=== PATIENT | male | born 1965 | race Two or more races ===

== ENCOUNTER 2019-07-12 13:48 | Inpatient (IN) | payer OTHER, MEDICAID ==
[~2019-07-12] VITALS: Ht 172.7 cm; Wt 114.0 kg
[2019-07-12] MEDS ORDERED: SODIUM CHLORIDE 0.9% 1,000 ML IV ONE (15:43)
[2019-07-12 16:21] LABS: Basophils # (auto) 0 uL; Basophils % (auto) 0.6 % (0.0-2.0); Eosinophils # (auto) 0.2 uL; Eosinophils % (auto) 3.5 % (0.0-7.0); Hematocrit 41.7 % (41.0-53.0); Hemoglobin 14.1 g/dL (13.5-17.5); Lymphocytes # (auto) 1.9 uL; Lymphocytes % (auto) 31.2 % (10.0-50.0); Mean Corpuscular Hgb Conc. 33.8 g/dL (32.0-36.0); Mean Corpuscular Volume 94.7 fL (80.0-100.0); Monocytes # (auto) 0.6 uL; Monocytes % (auto) 9.2 % (0.0-12.0); Neutrophils # (auto) 3.4 uL; Neutrophils % (auto) 55.5 % (37.0-80.0); Nucleated Red Blood Cells % 0.1 %; Platelet Count (auto) 252 10^3/uL (140-450); Red Cell Distribution Width 13.1 % (11.8-14.3); White Blood Cell 6.1 10^3/uL (4.4-10.8)
[2019-07-12 16:34] LABS: Alanine Aminotransferase 23 U/L (16-61); Anion Gap 6 (5-15); Aspartate Aminotransferase 11 U/L (15-37); BUN/Creatinine Ratio 19.3; Blood Urea Nitrogen 16 mg/dL (7-18); Calcium 7.3 mg/dL (8.5-10.1); Carbon Dioxide 21 mmol/L (21-32); Chloride 114 mmol/L (98-107); GFR African American 124 mL/min; GFR Non-African American 102 mL/min; Glucose 221 mg/dL (74-106); Potassium 4.6 mmol/L (3.5-5.1); Sodium 141 mmol/L (136-145)
[2019-07-12 16:38] LABS: Alkaline Phosphatase 67 U/L (45-117); Bilirubin, Total 0.2 mg/dL (0.2-1.0); Total Protein 6.6 g/dL (6.4-8.2)
[2019-07-12 16:48] LABS: INR < 0.93 (0.9-1.15); Partial Thromboplastin Time 24.1 sec (23.64-32.05)
[2019-07-12] MEDS ORDERED: ONDANSETRON HCL 4 MG/2 ML VIAL IV ONE (18:30)
[2019-07-12] MEDS ORDERED: MORPHINE SULFATE 4 MG/ML SYR/VIAL IV ONE (18:30)
[2019-07-12] MEDS ORDERED: DEXTROSE (50%) 50ML SYRG IV PRN (19:15)
[2019-07-12] MEDS ORDERED: ONDANSETRON HCL 4 MG/2 ML VIAL IV PRN (19:15)
[2019-07-12] MEDS ORDERED: NITROGLYCERIN 0.4 MG SL TAB SL PRN (19:15)
[2019-07-12] MEDS ORDERED: MORPHINE SULF INJ 2 MG/ML SYRINGE 1ML IV PRN (19:15)
[2019-07-12] MEDS ORDERED: ALBUTEROL SULF 2.5 MG/0.5ML(0.5%) NEB SOLN NEB PRN (19:15)
[2019-07-12] MEDS: SODIUM CHLORIDE 0.9% 1,000 ML IV SCH (19:59)
[2019-07-12] MEDS: GABAPENTIN 400 MG CAP PO SCH (22:20)
[2019-07-12] MEDS: MORPHINE SULF INJ 2 MG/ML SYRINGE 1ML IV PRN (22:34)
--- NOTE | 2019-07-12 23:24 | NUR ---
Respiratory note: PT SEEN AND ASSESSED FOR PRN MED NEB TX AT 2324. TX NOT INDICATED AT THIS TIME. PT STATED THAT HE HAS NO PROBLEM BREATHING RIGHT NOW. BREATH SOUNDS WERE DIMINISHED BILATERALLY. PT AWARE TO CALL FOR RT IF ANY DISTRESS OCCURS. HR 71 RR 18 POX 92% ON ROOM AIR.
[2019-07-12 23:50] VITALS: BP 137/89
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
[2019-07-13] VITALS (8 sets, daily range): BP systolic 128–155; BP diastolic 64–96
[2019-07-13] MEDS: ACCU-CHEK COMFORT CURVE STRIP VI SCH ×4 (00:23→17:46)
[2019-07-13] MEDS: InsuLIN REG 1unit/0.01ml Soln (100units/ml) SC SCH ×4 (00:23→17:47)
[2019-07-13] MEDS ORDERED: INFLUENZA QUAD 2019-2020 0.5ml SYRG IM ONE (01:45)
[2019-07-13] MEDS ORDERED: PNEUMOCOCCAL VACC POLYS 25 MCG/0.5 ML VIAL IM ONE (01:45)
[2019-07-13 06:16] LABS: Urine Bacteria MOD /hpf (None Seen); Urine Blood Negative /uL (Negative); Urine WBC 10 /hpf (0 - 3)
--- NOTE | 2019-07-13 08:50 | NUR ---
Opening Shift Note Assumed care of patient, aroused to voice. Patient is alert and orientated. No S/S of distress/SOB or pain. Left AC [address] patent and running well. Right lower quadrant urostomy in place. Instructed on POC and to call for assist PRN, will continue to monitor for changes Q1hr and PRN.
[2019-07-13] MEDS: cefTRIAXone 1GM/50ML D5W 50 ML IV SCH (09:12)
[2019-07-13] MEDS: SODIUM CHLORIDE 0.9% 1,000 ML IV SCH (09:48)
--- NOTE | 2019-07-13 09:52 | NUR ---
Respiratory note: PT ASSESSED FOR PRN MED NEB TX. NO SOB NOTED ON RA. POX 97%, HR 75, RR 18. B/S ARE CLEAR THROUGHOUT AND DIMINISHED IN THE BASES. MED NEB TX IS NOT INDICATED AT THIS TIME.
[2019-07-13] MEDS: HCTZ 25 MG TAB PO SCH (09:59)
[2019-07-13] MEDS: PANTOPRAZOLE 40 MG TAB PO SCH (10:00)
[2019-07-13] MEDS: GABAPENTIN 400 MG CAP PO SCH ×2 (10:00→21:39)
[2019-07-13] MEDS: CLOPIDOGREL BISULFATE 75 MG TAB PO SCH (10:00)
[2019-07-13] MEDS: SERTRALINE HCL 50 MG TAB PO SCH (10:02)
[2019-07-13] MEDS: LISINOPRIL 10 MG TAB PO SCH (10:02)
[2019-07-13] MEDS: MORPHINE SULF INJ 2 MG/ML SYRINGE 1ML IV PRN ×3 (10:47→21:13)
--- NOTE | 2019-07-13 19:10 | NUR ---
OPENING NOTE Assumed care of patient; family is at the bedside. Patient is alert and oriented. Currently on RA with no s/s of SOB or distress. Reports 9/10 pain in RLE. Pain management options discussed with patient. Urostomy present in right lower quadrant; stoma is pink and moist. Draining clear yellow urine to gravity. 22 gauge IV in right forearm intact and patent. NS infusing at 70ml/hr as ordered. Patient is W/C bound at baseline due to paralysis of right lower leg. Encouraged to call for assistance for all transfers. Patient verbalizes understanding. Bed is in low locked position with side rails up x2. Call light is within reach. Will continue to monitor PRN.
--- NOTE | 2019-07-13 19:30 | NUR ---
RT NOTE PT WAS SEEN BY RT FOR PRN HHN TX. PT STATES NO TREATMENT NEEDED AT THIS TIME. HR 68, RR 16, BS CLEAR, POX 96%. NO SOB OR DISTRESS NOTED. PT AWARE TO CALL IF TX NEEDED. CONT ORDERED Addendum: 07/13/19 at 1949 by Gina Shell RT Amended: Links added.
[2019-07-13] MEDS: RIVAROXABAN 15 MG TAB PO SCH (21:39)
[2019-07-13] MEDS: ZOLPIDEM TARTRATE 5 MG TAB PO PRN (21:39)
[2019-07-14] MEDS: InsuLIN REG 1unit/0.01ml Soln (100units/ml) SC SCH ×4 (00:19→18:00)
[2019-07-14] MEDS: ACCU-CHEK COMFORT CURVE STRIP VI SCH ×4 (00:20→18:00)
[2019-07-14 05:00] VITALS: BP 137/74
[2019-07-14 06:06] LABS: Basophils # (auto) 0 uL; Basophils % (auto) 0.4 % (0.0-2.0); Eosinophils # (auto) 0.3 uL; Monocytes # (auto) 0.6 uL; Neutrophils # (auto) 4.2 uL; Platelet Count (auto) 264 10^3/uL (140-450)
[2019-07-14 06:09] LABS: Eosinophils % (auto) 4.4 % (0.0-7.0); Hematocrit 39.8 % (41.0-53.0); Hemoglobin 14.5 g/dL (13.5-17.5); Lymphocytes # (auto) 1.6 uL; Lymphocytes % (auto) 23.9 % (10.0-50.0); Mean Corpuscular Hemoglobin 36.1 pg (28.0-32.0); Mean Corpuscular Hgb Conc. 36.3 g/dL (32.0-36.0); Mean Corpuscular Volume 99.5 fL (80.0-100.0); Monocytes % (auto) 8.4 % (0.0-12.0); Neutrophils % (auto) 62.9 % (37.0-80.0); Nucleated Red Blood Cells % 0.1 %; Red Blood Cells 4.01 10^6/uL (4.5-5.90); White Blood Cell 6.7 10^3/uL (4.4-10.8)
[2019-07-14] MEDS: SODIUM CHLORIDE 0.9% 1,000 ML IV SCH ×2 (06:17→14:24)
[2019-07-14 06:27] LABS: Potassium 4.2 mmol/L (3.5-5.1)
[2019-07-14 06:35] LABS: Albumin 2.8 g/dL (3.4-5.0); BUN/Creatinine Ratio 18.1; Calcium 7.7 mg/dL (8.5-10.1)
[2019-07-14 06:38] LABS: Bilirubin, Total 0.2 mg/dL (0.2-1.0); Total Protein 6.5 g/dL (6.4-8.2)
--- NOTE | 2019-07-14 07:10 | NUR ---
Respiratory note: Assessed pt for prn medneb tx. HR 60, RR 14, POX 96% on room air. Breath sounds clear/diminished throughout. No s/s of respiratory distress noted. Medneb tx not indicated at this time. Advised pt to call for RT if tx needed, pt verbalized understanding.
--- NOTE | 2019-07-14 07:20 | NUR ---
Opening Shift Note Assumed care of patient, awake and alert. No S/S of distress/SOB, no pain noted or reported at this time. Respirations are even and unlabored on RA. Updated on POC and instructed to call for assistance as needed, pt. verbalized understanding. Bed locked in lowest position, side rails up x2, call light within reach, bed alarm on for safety. Will continue to monitor for changes Q1hr and PRN.
[2019-07-14 09:00] VITALS: BP 156/88
[2019-07-14] MEDS: GABAPENTIN 400 MG CAP PO SCH ×2 (09:17→22:34)
[2019-07-14] MEDS: MORPHINE SULF INJ 2 MG/ML SYRINGE 1ML IV PRN ×3 (09:17→20:23)
[2019-07-14] MEDS: PANTOPRAZOLE 40 MG TAB PO SCH (09:18)
[2019-07-14] MEDS: HCTZ 25 MG TAB PO SCH (09:18)
[2019-07-14] MEDS: CLOPIDOGREL BISULFATE 75 MG TAB PO SCH (09:18)
[2019-07-14] MEDS: RIVAROXABAN 15 MG TAB PO SCH ×2 (09:18→22:34)
[2019-07-14] MEDS: cefTRIAXone 1GM/50ML D5W 50 ML IV SCH (09:18)
[2019-07-14] MEDS: SERTRALINE HCL 50 MG TAB PO SCH (09:18)
[2019-07-14] MEDS: LISINOPRIL 10 MG TAB PO SCH (09:19)
[2019-07-14 13:00] VITALS: BP 157/101
--- NOTE | 2019-07-14 15:00 | NUR ---
IV removal IV DC'd with clean sterile technique, catheter fully intact. Pressure dressing applied to site. Patient tolerated well.
--- NOTE | 2019-07-14 15:30 | NUR ---
IV insertion IV access obtained, via clean sterile technique by inserting 22 gauge catheter at right forearm after 2 attempt(s). IV secured properly. No trauma to site. Patient tolerated well. NOTE: []
--- NOTE | 2019-07-14 16:44 | NUR ---
PATIENT TAKEN TO RADIOLOGY FOR MRI
[2019-07-14 17:02] VITALS: BP 160/102
--- NOTE | 2019-07-14 18:06 | NUR ---
PATIENT BACK FROM RADIOLOGY.
--- NOTE | 2019-07-14 19:15 | NUR ---
OPENING NOTE Assumed care of patient who is A&O x4. Currently on room air with no s/s of SOB or distress. Reports 8/10 pain in lower back and right lower extremity. Pain management options discussed with patient who verbalizes understanding. Redness to BLE noted. Area is not raised or hot; patient denies itching or pain. Area circled and will continue to monitor for changes PRN. Urostomy in place and patent, draining to gravity. Bed is in low locked position with side rails up x2. Call light is within reach. Patient is encouraged to call for assistance when needed. Will continue to monitor for changes PRN.
[2019-07-14 20:00] VITALS: BP 166/89
[2019-07-14 22:00] VITALS: BP 166/89
[2019-07-14] MEDS: ZOLPIDEM TARTRATE 5 MG TAB PO PRN (22:34)
--- NOTE | 2019-07-14 23:15 | NUR ---
Respiratory note: ASSESSED PT FOR PRN MED NEB AT THIS TIME, PT DENIES SOB AT THIS TIME, NO RESP DISTRESS NOTED, NO TX INDICATED. PULSE OX 92% ON RA, HR 102, RR 20, BILATERAL BS CLEAR.
[2019-07-15] MEDS: ACCU-CHEK COMFORT CURVE STRIP VI SCH ×5 (00:17→23:49)
[2019-07-15] MEDS: MORPHINE SULF INJ 2 MG/ML SYRINGE 1ML IV PRN ×2 (00:17→08:57)
[2019-07-15] MEDS: InsuLIN REG 1unit/0.01ml Soln (100units/ml) SC SCH ×5 (00:18→23:49)
--- NOTE | 2019-07-15 00:28 | NUR ---
Left message for Dr. Larose to report BP of 160/70 with Hr of 113. Awaiting call back.
--- NOTE | 2019-07-15 02:08 | NUR ---
Received call from [employer] reporting heart rate of 150. Assessed patient who is alert, oriented and diaphoretic denies chest pain. BP is 166/95. Patient reports eating three marijuana brownies yesterday evening and states, "this might be because of those brownies. I am feeling pretty high. This stuff always makes me sweat". Patient educated on the potential health risks and adverse effects of using marijuana, as well as possible interactions with prescribed medications. Patient verbalizes understanding. Will continue to monitor PRN.
[2019-07-15 05:00] VITALS: BP 105/70
[2019-07-15] MEDS: SODIUM CHLORIDE 0.9% 1,000 ML IV SCH ×2 (05:59→21:09)
[2019-07-15 06:13] LABS: Calcium 8.4 mg/dL (8.5-10.1); Potassium 3.9 mmol/L (3.5-5.1)
[2019-07-15 06:18] LABS: BUN/Creatinine Ratio 20.8
--- NOTE | 2019-07-15 07:30 | NUR ---
Opening Shift Note Assumed care of patient, awake and alert. No S/S of distress/SOB or pain. Instructed on POC and to call for assist PRN, will continue to monitor for changes Q1hr and PRN.
[2019-07-15 08:00] VITALS: BP 147/80
[2019-07-15] MEDS: cefTRIAXone 1GM/50ML D5W 50 ML IV SCH (08:57)
[2019-07-15 09:00] VITALS: BP 147/80
--- NOTE | 2019-07-15 09:31 | NUR ---
Respiratory note: Assessed pt for prn medneb tx. HR 78, RR 18, POX 93% on room air. Breath sounds clear throughout, no s/s of respiratory distress noted. Pt denies any SOB. Medneb tx not indicated at this time. Advised pt to call for RT if needed.
[2019-07-15] MEDS: GABAPENTIN 400 MG CAP PO SCH ×2 (10:13→20:32)
[2019-07-15] MEDS: LISINOPRIL 10 MG TAB PO SCH (10:13)
[2019-07-15] MEDS: HCTZ 25 MG TAB PO SCH (10:14)
[2019-07-15] MEDS: SERTRALINE HCL 50 MG TAB PO SCH (10:14)
[2019-07-15] MEDS: CLOPIDOGREL BISULFATE 75 MG TAB PO SCH (10:14)
[2019-07-15] MEDS: RIVAROXABAN 15 MG TAB PO SCH ×2 (10:14→20:31)
[2019-07-15] MEDS: PANTOPRAZOLE 40 MG TAB PO SCH (10:14)
--- NOTE | 2019-07-15 12:00 | NUR ---
[facility]PT CALLED TO TALK TO [facility] REGARDING [facility] RECOMMENDATION FOR RIGHT ANKLE SPLINT. NO ANSWER. OFFICE IS AT LUNCH.
--- NOTE | 2019-07-15 12:30 | NUR ---
Pain request Patient requesting to have morphine changed to Dilaudid. Paged MD Larose.
--- NOTE | 2019-07-15 12:55 | NUR ---
MD RETURN CALL UPDATED MD ON CURRENT REQUEST. RECEIVED ORDERS BACK FROM MD. REREAD ORDERS BACK TO MD.
[2019-07-15 13:00] VITALS: BP 131/84
--- NOTE | 2019-07-15 14:14 | NUR ---
assessment Patient is a 53 year old male who is alert and oriented. Patients cognitive abilities are intact. Prior to admission patient lived home with his girl friend Lina and functioned with assistance. Per patient he will return home to his prior living arrangements post discharge and Lina will transport him home. Patient informed me he has a wheelchair, fww, and a cane for home use. Patient informed me his PCP is Dr Cinthia Larose. Patient informed me he fell at home and was having right ankle pain. Patient came to ER and was admitted. Patients post discharge needs to be determined prior to discharge. I informed patient he has a right to speak to a outreach and education social worker regarding all care. I informed patient he has a right to participate in any and all discharge planning. Patient does not have a POA and advanced directive. I have offered patient information on POA and advanced directives. I informed the patient the advantages and benefits of having an Advanced Directive. Patient verbalized understanding and agreed to discharge plan. Addendum: 07/15/19 at 1418 by Karla JURADO Amended: Links added.
--- NOTE | 2019-07-15 14:19 | NUR ---
SPLINT CALLED [facility]TH[facility] DEPARTMENT- NO PERSON AVAILABLE TO APPLY ANKLE SPLINT AT THIS TIME. PER FRONT OFFICE PERSONAL, SHE WILL CONTACT SOMEONE AND WILL CALL PRIMARY RN BACK.
[2019-07-15] MEDS: HYDROmorphone HCL 2 MG/ML VL IV PRN ×2 (15:12→20:31)
[2019-07-15 17:00] VITALS: BP 124/75
--- NOTE | 2019-07-15 19:00 | NUR ---
OPENING NOTE Assumed care of patient. Patient is A&O X's 4 with no s/s of distress. Patient c/o pain 9/10 to right leg and foot. Will medicate as ordered. Educated patient on POC and to use call light when in need of assistance. Patient verbalized understanding. Provided an ankle brace for patient and applied it at this time. Patient reports that it doesn't fit and feel right on his foot because he has drop foot and it does not feel like it is doing much good. Patient requested to have it off for now. Bed is in lowest/locked position with side rails up X's 2 and call light is within reach of patient. Will continue care.
[2019-07-15] MEDS: INSULIN LANTUS (GLARGINE) 1 /0.01ml (100units/ml) SC SCH (21:10)
[2019-07-15] MEDS: ZOLPIDEM TARTRATE 5 MG TAB PO PRN (21:22)
--- NOTE | 2019-07-15 21:59 | NUR ---
RT NOTE PRN ASSESSMENT DONE. PRN NOT INDICATED AT THIS TIME.
[2019-07-15 22:00] VITALS: BP 117/77
[2019-07-16 03:05] VITALS: BP 117/77
[2019-07-16 05:00] VITALS: BP 121/78
[2019-07-16] MEDS: InsuLIN REG 1unit/0.01ml Soln (100units/ml) SC SCH ×2 (06:00→11:37)
[2019-07-16] MEDS: ACCU-CHEK COMFORT CURVE STRIP VI SCH ×2 (06:25→11:36)
[2019-07-16] MEDS: INSULIN LANTUS (GLARGINE) 1 /0.01ml (100units/ml) SC SCH (06:25)
[2019-07-16] MEDS: HYDROmorphone HCL 2 MG/ML VL IV PRN ×2 (08:57→13:20)
[2019-07-16 09:00] VITALS: BP 120/73
[2019-07-16] MEDS: HCTZ 25 MG TAB PO SCH (09:52)
[2019-07-16] MEDS: SERTRALINE HCL 50 MG TAB PO SCH (09:53)
[2019-07-16] MEDS: CLOPIDOGREL BISULFATE 75 MG TAB PO SCH (09:53)
[2019-07-16] MEDS: PANTOPRAZOLE 40 MG TAB PO SCH (09:53)
[2019-07-16] MEDS: GABAPENTIN 400 MG CAP PO SCH (09:53)
[2019-07-16] MEDS: RIVAROXABAN 15 MG TAB PO SCH (09:53)
[2019-07-16] MEDS: LISINOPRIL 10 MG TAB PO SCH (09:53)
[2019-07-16] MEDS: cefTRIAXone 1GM/50ML D5W 50 ML IV SCH (09:54)
--- NOTE | 2019-07-16 10:29 | NUR ---
Spoke to Briana, pharmacist, re flu vaccine. Briana states the flu vaccine is not available.
--- NOTE | 2019-07-16 11:30 | NUR ---
Soft splint applied to right lower leg by Dr. Larose.
--- NOTE | 2019-07-16 14:15 | NUR ---
Discharge instructions given as ordered. Encourage to follow up with PMD as instructed. All questions and concerns addressed. Patient verbalized understanding. Medication reconciliation form completed and copy given to patient. Needed vaccines given. IV removed with catheter intact, pressure dressing applied. Telemetry unit returned to ICU. Patient taken to vehicle via wheelchair with all personal belongings, accompanied by staff and family member. No distress noted at time of departure.
== END 2019-07-16 14:15 | disposition home or self-care (01) | DRG 300 ==
LOC: ER 13:48 → TELE 13:49 → TELE-CENTR 23:24
PROVIDERS: ADMIT Internal Medicine; ATTEND Internal Medicine
PROC: 2W3LX1Z Immobilization of Right Lower Extremity using Splint (ICD-10-PCS; principal; 2019-07-15)
DX: I82.431 Acute embolism and thrombosis of right popliteal vein (principal); E44.0 Moderate protein-calorie malnutrition; V89.2XXS Person injured in unspecified motor-vehicle accident, traffic, sequela; J45.909 Unspecified asthma, uncomplicated; I10 Essential (primary) hypertension; G89.21 Chronic pain due to trauma; Z23 Encounter for immunization; G83.11 Monoplegia of lower limb affecting right dominant side; E11.40 Type 2 diabetes mellitus with diabetic neuropathy, unspecified; Z88.0 Allergy status to penicillin; Z90.49 Acquired absence of other specified parts of digestive tract; Z79.01 Long term (current) use of anticoagulants; Z79.899 Other long term (current) drug therapy; Z82.5 Family history of asthma and other chronic lower respiratory diseases; Z86.718 Personal history of other venous thrombosis and embolism; Z87.891 Personal history of nicotine dependence; Z93.6 Other artificial openings of urinary tract status; Z99.3 Dependence on wheelchair; Z83.3 Family history of diabetes mellitus; Z68.38 Body mass index [BMI] 38.0-38.9, adult
CPT/HCPCS: 36415; 71045; 72146; 72148; 72170; 73610; 80048; 80053; 81001; 82962; 84484; 85025; 85610; 85730; 87086; 93970; 96361; 96365; 96375; G0378; J0696; J1815; J2405

== ENCOUNTER 2021-01-02 11:03 | Inpatient (IN) | payer OTHER, MEDICAID ==
[~2021-01-02] VITALS: Ht 167.6 cm; Wt 109.2 kg
[2021-01-02] MEDS ORDERED: SODIUM CHLORIDE 0.9% 1,000 ML IVB ONE (11:45)
[2021-01-02 11:50] LABS: Basophils # (auto) 0.1 10 ^3/uL (0-0.2); Basophils % (auto) 0.7 % (0.0-2.0); Eosinophils # (auto) 0.1 10 ^3/uL (0-0.8); Eosinophils % (auto) 1.6 % (0.0-7.0); Hematocrit 47.5 % (41.0-53.0); Hemoglobin 16.5 g/dL (13.5-17.5); Lymphocytes % (auto) 23.9 % (10.0-50.0); Mean Corpuscular Hemoglobin 31.8 pg (28.0-32.0); Mean Corpuscular Hgb Conc. 34.7 g/dL (32.0-36.0); Mean Corpuscular Volume 91.4 fL (80.0-100.0); Monocytes # (auto) 0.6 10 ^3/uL (0-1.3); Monocytes % (auto) 7.7 % (0.0-12.0); Neutrophils # (auto) 5.5 10 ^3/uL (1.6-8.6); Neutrophils % (auto) 66.1 % (37.0-80.0); Platelet Count (auto) 316 10^3/uL (140-450); Red Cell Distribution Width 12.8 % (11.8-14.3); White Blood Cell 8.3 10^3/uL (4.4-10.8)
[2021-01-02] MEDS ORDERED: LISI-283 PO (11:53)
[2021-01-02] MEDS ORDERED: SERT-160 PO (11:53)
[2021-01-02] MEDS ORDERED: GABA800T97 PO (11:53)
[2021-01-02] MEDS ORDERED: CLOP75TA70 PO (11:53)
[2021-01-02] MEDS ORDERED: PANT40T PO (11:53)
[2021-01-02 12:06] LABS: INR 0.96 (0.9-1.15); Partial Thromboplastin Time 25.1 sec (23.0-31.2)
[2021-01-02] MEDS ORDERED: ONDANSETRON HCL 4 MG/2 ML VIAL IV ONE (12:15)
[2021-01-02] MEDS ORDERED: MORPHINE SULF INJ 2 MG/ML SYRINGE 1ML IV ONE (12:15)
[2021-01-02] MEDS ORDERED: ONDANSETRON HCL 4 MG/2 ML VIAL ONE (12:18)
[2021-01-02 12:27] LABS: Albumin 3.4 g/dL (3.4-5.0); Anion Gap 12 (5-15); Blood Urea Nitrogen 16 mg/dL (7-18); Calcium 7.9 mg/dL (8.5-10.1); Carbon Dioxide 19 mmol/L (21-32); Chloride 103 mmol/L (98-107); Glucose 262 mg/dL (74-106); Potassium 4.1 mmol/L (3.5-5.1); Sodium 134 mmol/L (136-145)
[2021-01-02 12:30] LABS: Alanine Aminotransferase 33 U/L (16-61); Aspartate Aminotransferase 11 U/L (15-37); BUN/Creatinine Ratio 17.4; GFR African American 109 mL/min; GFR Non-African American 90 mL/min
[2021-01-02 12:35] LABS: Alkaline Phosphatase 70 U/L (45-117); Bilirubin, Total 0.4 mg/dL (0.2-1.0); Total Protein 7.5 g/dL (6.4-8.2)
[2021-01-02 12:48] LABS: Urine Bacteria FEW /hpf (None Seen); Urine Blood TRACE /uL (Negative); Urine WBC 7 /hpf (0 - 3)
[2021-01-02] MEDS ORDERED: cefTRIAXone 1GM/50ML D5W 50 ML IV ONE (13:15)
[2021-01-02] MEDS ORDERED: ONDANSETRON HCL 4 MG/2 ML VIAL IV PRN (14:15)
[2021-01-02] MEDS ORDERED: NITROGLYCERIN 0.4 MG SL TAB SL PRN (14:15)
[2021-01-02] MEDS ORDERED: DEXTROSE (50%) 50ML SYRG IV PRN (14:15)
[2021-01-02] MEDS ORDERED: MORPHINE SULF INJ 2 MG/ML SYRINGE 1ML IV PRN (14:15)
[2021-01-02] MEDS ORDERED: ACETAMINOPHEN 325 MG TAB PO PRN (14:15)
[2021-01-02] MEDS: SODIUM CHLORIDE 0.9% 1,000 ML IV SCH (14:29)
[2021-01-02 16:16] VITALS: BP 123/89
[2021-01-02] MEDS ORDERED: LACTULOSE 20Gm/30ML SOLN PO PRN (16:45)
[2021-01-02 16:59] VITALS: BP 115/77
[2021-01-02] MEDS ORDERED: levoFLOXacin 500MG 100 ML IV ONE (17:45)
[2021-01-02] MEDS: InsuLIN REG 1unit/0.01ml Soln (100units/ml) SC SCH (18:12)
[2021-01-02] MEDS: ACCU-CHEK COMFORT CURVE STRIP VI SCH (18:19)
[2021-01-02] MEDS: LORazepam 2MG/ML-1ML VIAL IV PRN (19:36)
[2021-01-02] MEDS: GABAPENTIN 400 MG CAP PO SCH (21:34)
[2021-01-02] MEDS: PANTOPRAZOLE 40 MG/10 ML VIAL INJ IV SCH (21:34)
[2021-01-02 22:00] VITALS: BP 119/67
[2021-01-03] MEDS: ACCU-CHEK COMFORT CURVE STRIP VI SCH ×4 (00:18→18:16)
[2021-01-03] MEDS: InsuLIN REG 1unit/0.01ml Soln (100units/ml) SC SCH ×4 (00:20→18:17)
[2021-01-03] MEDS: SODIUM CHLORIDE 0.9% 1,000 ML IV SCH ×2 (03:46→18:18)
[2021-01-03 05:00] VITALS: BP 138/88
[2021-01-03 06:06] LABS: Basophils # (auto) 0 10 ^3/uL (0-0.2); Basophils % (auto) 0.3 % (0.0-2.0); Eosinophils # (auto) 0.2 10 ^3/uL (0-0.8); Eosinophils % (auto) 2.7 % (0.0-7.0); Hematocrit 42.4 % (41.0-53.0); Hemoglobin 14.8 g/dL (13.5-17.5); Lymphocytes # (auto) 2.1 10 ^3/uL (0.4-5.4); Lymphocytes % (auto) 26.5 % (10.0-50.0); Mean Corpuscular Hemoglobin 32.1 pg (28.0-32.0); Mean Corpuscular Volume 91.8 fL (80.0-100.0); Monocytes # (auto) 0.7 10 ^3/uL (0-1.3); Monocytes % (auto) 8.4 % (0.0-12.0); Neutrophils % (auto) 62.1 % (37.0-80.0); Nucleated Red Blood Cells % 0.1 %; Platelet Count (auto) 251 10^3/uL (140-450); Red Blood Cells 4.62 10^6/uL (4.5-5.90); White Blood Cell 8.1 10^3/uL (4.4-10.8)
[2021-01-03 06:23] LABS: Albumin 2.9 g/dL (3.4-5.0); BUN/Creatinine Ratio 21.1; Calcium 7.6 mg/dL (8.5-10.1)
[2021-01-03 06:25] LABS: Bilirubin, Total 0.2 mg/dL (0.2-1.0); Total Protein 6.5 g/dL (6.4-8.2)
[2021-01-03] MEDS: LORazepam 2MG/ML-1ML VIAL IV PRN ×3 (06:33→19:50)
[2021-01-03] MEDS: GABAPENTIN 400 MG CAP PO SCH ×3 (06:33→21:18)
[2021-01-03 08:36] VITALS: BP 149/69
[2021-01-03] MEDS: PANTOPRAZOLE 40 MG/10 ML VIAL INJ IV SCH ×2 (09:33→21:18)
[2021-01-03] MEDS: SERTRALINE HCL 50 MG TAB PO SCH (09:34)
[2021-01-03] MEDS: ENOXAPARIN SOD 40 MG/0.4 ML SYRINGE SC SCH (09:34)
[2021-01-03] MEDS ORDERED: LISINOPRIL PO SCH (10:00)
[2021-01-03] MEDS ORDERED: THIAMINE 100mg/ml INJ (200mg/2ml VIAL) IV ONE (10:00)
[2021-01-03] MEDS: THIAMINE 100mg/ml INJ (200mg/2ml VIAL) IV SCH (10:00)
[2021-01-03] MEDS ORDERED: cefTRIAXone 1GM/50ML D5W 50 ML IV ONE (10:00)
[2021-01-03] MEDS ORDERED: HYDROCHLOROTHIAZIDE PO SCH (10:00)
[2021-01-03] MEDS ORDERED: levoFLOXacin 500MG 100 ML IV SCH (10:00)
[2021-01-03] MEDS: LISINOPRIL 5 MG TAB PO SCH (10:22)
[2021-01-03] MEDS ORDERED: GASTROGRAFIN 120 ML SOL ONE (10:22)
[2021-01-03 12:53] VITALS: BP 156/106
[2021-01-03] MEDS: HYOSCYAMINE SULF 0.125 MG ODT TAB PO PRN ×2 (13:50→20:30)
[2021-01-03 16:44] VITALS: BP 148/98
[2021-01-03 21:48] VITALS: BP 125/69
[2021-01-04] MEDS: InsuLIN REG 1unit/0.01ml Soln (100units/ml) SC SCH ×4 (00:48→18:20)
[2021-01-04 05:00] VITALS: BP 146/95
[2021-01-04] MEDS: ACCU-CHEK COMFORT CURVE STRIP VI SCH ×4 (06:21→16:34)
[2021-01-04] MEDS: GABAPENTIN 400 MG CAP PO SCH ×3 (06:22→22:17)
[2021-01-04] MEDS: LORazepam 2MG/ML-1ML VIAL IV PRN ×2 (08:36→20:48)
[2021-01-04] MEDS: cefTRIAXone 1GM/50ML D5W 50 ML IV SCH (08:54)
[2021-01-04] MEDS: SODIUM CHLORIDE 0.9% 1,000 ML IV SCH (08:55)
[2021-01-04] MEDS: THIAMINE 100mg/ml INJ (200mg/2ml VIAL) IV SCH (08:55)
[2021-01-04] MEDS: PANTOPRAZOLE 40 MG/10 ML VIAL INJ IV SCH ×2 (08:56→22:16)
[2021-01-04] MEDS: LISINOPRIL 5 MG TAB PO SCH (08:56)
[2021-01-04] MEDS: SERTRALINE HCL 50 MG TAB PO SCH (08:57)
[2021-01-04] MEDS: ENOXAPARIN SOD 40 MG/0.4 ML SYRINGE SC SCH (08:57)
[2021-01-04 09:22] VITALS: BP 160/94
[2021-01-04 09:34] LABS: Basophils # (auto) 0 10 ^3/uL (0-0.2); Basophils % (auto) 0.4 % (0.0-2.0); Eosinophils # (auto) 0.1 10 ^3/uL (0-0.8); Eosinophils % (auto) 1.5 % (0.0-7.0); Hematocrit 46.9 % (41.0-53.0); Hemoglobin 16.4 g/dL (13.5-17.5); Lymphocytes # (auto) 1.8 10 ^3/uL (0.4-5.4); Lymphocytes % (auto) 20.2 % (10.0-50.0); Mean Corpuscular Hemoglobin 31.9 pg (28.0-32.0); Mean Corpuscular Hgb Conc. 34.9 g/dL (32.0-36.0); Mean Corpuscular Volume 91.3 fL (80.0-100.0); Monocytes # (auto) 0.6 10 ^3/uL (0-1.3); Monocytes % (auto) 6.7 % (0.0-12.0); Neutrophils # (auto) 6.2 10 ^3/uL (1.6-8.6); Neutrophils % (auto) 71.2 % (37.0-80.0); Nucleated Red Blood Cells % 0.1 %; Platelet Count (auto) 298 10^3/uL (140-450); Red Blood Cells 5.13 10^6/uL (4.5-5.90); Red Cell Distribution Width 12.7 % (11.8-14.3); White Blood Cell 8.8 10^3/uL (4.4-10.8)
[2021-01-04 09:53] LABS: BUN/Creatinine Ratio 16.4; Calcium 8.3 mg/dL (8.5-10.1)
[2021-01-04] MEDS: HYOSCYAMINE SULF 0.125 MG ODT TAB PO PRN ×3 (11:46→20:48)
[2021-01-04 13:12] VITALS: BP 127/79
[2021-01-04 16:22] VITALS: BP 140/86
[2021-01-04 22:00] VITALS: BP 120/72
[2021-01-05] MEDS: ACCU-CHEK COMFORT CURVE STRIP VI SCH ×3 (00:23→11:56)
[2021-01-05] MEDS: InsuLIN REG 1unit/0.01ml Soln (100units/ml) SC SCH ×3 (00:33→12:32)
[2021-01-05] MEDS: LORazepam 2MG/ML-1ML VIAL IV PRN ×2 (03:02→12:32)
[2021-01-05] MEDS: HYOSCYAMINE SULF 0.125 MG ODT TAB PO PRN (03:02)
[2021-01-05 05:00] VITALS: BP 160/83
[2021-01-05] MEDS: GABAPENTIN 400 MG CAP PO SCH ×2 (06:44→14:58)
[2021-01-05 08:00] VITALS: BP 145/89
[2021-01-05] MEDS: cefTRIAXone 1GM/50ML D5W 50 ML IV SCH (09:39)
[2021-01-05] MEDS: THIAMINE 100mg/ml INJ (200mg/2ml VIAL) IV SCH (09:39)
[2021-01-05] MEDS: PANTOPRAZOLE 40 MG/10 ML VIAL INJ IV SCH (09:39)
[2021-01-05] MEDS: SERTRALINE HCL 50 MG TAB PO SCH (09:40)
[2021-01-05] MEDS: LISINOPRIL 5 MG TAB PO SCH (09:40)
== END 2021-01-05 15:45 | disposition home or self-care (01) | DRG 388 ==
LOC: ER 11:03 → TELE 11:04 → TELE-CENTR 15:12 → TELE-EAST 01-03 11:11
PROVIDERS: ADMIT Internal Medicine; ATTEND Internal Medicine
DX: K56.609 Unspecified intestinal obstruction, unspecified as to partial versus complete obstruction (principal); U07.1 COVID-19; N39.0 Urinary tract infection, site not specified; K59.00 Constipation, unspecified; R19.7 Diarrhea, unspecified; E11.9 Type 2 diabetes mellitus without complications; E66.9 Obesity, unspecified; K46.9 Unspecified abdominal hernia without obstruction or gangrene; F12.10 Cannabis abuse, uncomplicated; I10 Essential (primary) hypertension; Z68.38 Body mass index [BMI] 38.0-38.9, adult; Z90.49 Acquired absence of other specified parts of digestive tract; Z93.6 Other artificial openings of urinary tract status; Z95.5 Presence of coronary angioplasty implant and graft; Z88.0 Allergy status to penicillin
CPT/HCPCS: 36415; 71045; 74176; 74250; 80048; 80053; 81001; 82962; 83036; 83690; 83735; 84484; 85025; 85048; 85610; 85730; 87045; 87081; 87086; 87426; 87427; 87493; 93005; 96374; 96375; C9113; G0378; J0696; J1815; J1956; J2405